=== PATIENT | male | born 1985 | race Caucasian/White ===

== ENCOUNTER 2017-05-26 16:32 | Emergency (ER) | payer OTHER ==
[~2017-05-26] VITALS: Ht 190.5 cm; Wt 89.8 kg
[~2017-05-26 16:32] MED LIST: DEPO-TESTO100 MG/1 M IM; DOCUSATE SODIU100 MG PO; LATUDA20 MG PO; NAPROSYN500 MG PO; PROTONIX40 MG PO; ZANTAC300 MG PO
[2017-05-26] MEDS ORDERED: ASPIRIN81 MG PO (16:50)
[2017-05-26] MEDS ORDERED: IMITREX25 MG (16:52)
[2017-05-26] MEDS ORDERED: OMEPRAZOLE20 MG (16:52)
[2017-05-26] MEDS ORDERED: OMEPRAZOLE20 MG PO (16:53)
--- OUTSIDE RECORDS SUMMARY | 2017-05-26 17:09 | XMS | Clinical Summary ---
Demographics + + + | Address | [address] [place] [address] | | | [place] [address] | + + + | Home Phone | | + + + | Preferred Language | Unknown | + + + | Marital Status | Single | + + + | Judaism Affiliation | None | + + + | Race | White | + + + | Ethnic Group | Not or | + + + Author + + + | Author | [facility] | + + + | Organization | [facility] | + + + | Address | Unknown | + + + | Phone | Unavailable | + + + Support + + +---------+ + | Name | Relationship | Address | Phone | + + +---------+ + | Ayush Sydney | ECON | Unknown | | + + +---------+ + Care Team Providers + +------+ + | Care Director Global Sales Name | Role | Phone | + +------+ + | Poppy Doctor | PP | Unavailable | + +------+ + Allergies + + + + + + | Active Allergy | Reactions | Severity | Noted | Comments | | | | | Date | | + + + + + + | Acetaminophen | Other (See Comments) | Low | 10/17/19 | "for my liver" per | | | | | 16 | pt | + + + + + + | Ibuprofen | Other (See Comments) | Low | 10/17/19 | "for my liver" per | | | | | 16 | pt | + + + + + + | Morphine | Other (See Comments) | Low | 10/17/19 | Pt states woke up | | | | | 16 | in a rage | + + + + + + | Trazodone | Needs Follow Up | Low | 10/17/19 | | | | | | 16 | | + + + + + + Current Medications + + +-------+---------+------+------+-------+ | Prescription | Sig. | Disp. | Refills | Star | End | Statu | | | | | | t | Date | s | | | | | | Date | | | + + +-------+---------+------+------+-------+ | testosterone | Inject 100 mg into | | | 04/0 | | Activ | | cypionate | the muscle every 14 | | | 04/05 | | e | | (DEPOTESTOSTERONE | days | | | 16 | | | | CYPIONATE) 200 mg/mL | | | | | | | | injection | | | | | | | + + +-------+---------+------+------+-------+ | hydrOXYzine | Take 100 mg by mouth | | | | | Activ | | (ATARAX) 50 mg | 3 times daily as | | | | | e | | tablet | needed for Itching | | | | | | | | or Anxiety | | | | | | + + +-------+---------+------+------+-------+ | ranitidine | Take 150 mg by mouth | | | | | Activ | | (ZANTAC) 150 mg | 2 times daily | | | | | e | | capsule | | | | | | | + + +-------+---------+------+------+-------+ | docusate sodium | Take 100 mg by mouth | | | | | Activ | | (COLACE) 100 mg | 2 times daily | | | | | e | | capsule | | | | | | | + + +-------+---------+------+------+-------+ | pantoprazole | Take 40 mg by mouth | | | | | Activ | | (PROTONIX) 40 mg EC | every morning | | | | | e | | tablet | (before breakfast) | | | | | | + + +-------+---------+------+------+-------+ | SUMAtriptan | Take 25 mg by mouth | | | | | Activ | | (IMITREX) 25 mg | once as needed for | | | | | e | | tablet | Migraine | | | | | | + + +-------+---------+------+------+-------+ | naproxen | Take 500 mg by mouth | | | | | Activ | | (NAPROSYN) 500 mg | 2 times daily (with | | | | | e | | tablet | meals) | | | | | | + + +-------+---------+------+------+-------+ | lurasidone | Take 80 mg by mouth | | | | | Activ | | (LATUDA) 80 mg | daily | | | | | e | | tablet | | | | | | | + + +-------+---------+------+------+-------+ Active Problems + + + | Problem | Noted Date | + + + | Nausea and vomiting | 10/17/2015 | + + + | Slow transit constipation | 10/17/2015 | + + + | History of gastrointestinal ulcer | 10/17/2015 | + + + + + | Overview: 2014 | | EGD [facility] [place] | + + Social History + +-------+ +--------+------+ | Tobacco Use | Types | Packs/Day | Years | Date | | | | | Used | | + +-------+ +--------+------+ | Former Smoker | | | | | + +-------+ +--------+------+ + +---+---+---+ | Smokeless Tobacco: | | | | | Former User | | | | + +---+---+---+ + + +---------+ + | Alcohol Use | Drinks/We | oz/Week | Comments | | | ek | | | + + +---------+ + | No | | | | + + +---------+ + + + + | Sex Assigned at | Date Recorded | | | | + + + | Not on file | | + + + Last Filed Vital Signs + + + + | Vital Sign | Reading | Time Taken | + + + + | Blood Pressure | 135/88 | 10/17/2015 2:37 PM PDT | + + + + | Pulse | 65 | 10/17/2015 2:37 PM PDT | + + + + | Temperature | 36.1 C (96.9 F) | 10/17/2015 2:37 PM PDT | + + + + | Respiratory Rate | 16 | 10/17/2015 2:37 PM PDT | + + + + | Oxygen Saturation | 95% | 10/17/2015 2:37 PM PDT | + + + + | Inhaled Oxygen | - | - | | Concentration | | | + + + + | Weight | 97.3 kg (214 lb 6.4 | 10/17/2015 12:07 AM PDT | | | oz) | | + + + + | Height | 185.4 cm (6' 1") | 10/17/2015 12:07 AM PDT | + + + + | Body Mass Index | 28.29 | 10/17/2015 12:07 AM PDT | + + + + Plan of Treatment + + + + + | Health Maintenance | Due Date | Last Done | Comments | + + + + + | HIV Screening | | | | | | 9 | | | + + + + + | Tetanus | | | | | | 3 | | | + + + + + | IMM Influenza (#1) | | | | | | 7 | | | + + + + + Results Not on filefrom Last 3 Months Insurance + +--------+ +-------+ + + | Payer | Benefi | Subscriber | Type | Phone | Address | | | t Plan | ID | | | | | | / | | | | | | | Group | | | | | + +--------+ +-------+ + + | [employer] | [employer] | [id number] | Other | [phone] [address] [address] | | [facility] | [place] | | [phone] | [place], [place] | | | [place] | | | | [phone] | | | | | | | | | | HEALTH | | | | | | | | | | | | | | PARTNE | | | | | | | RS | | | | | + +--------+ +-------+ + + + +--------+ +--------+ + + | Guarantor Name | Accoun | Relation to | Date | Phone | Billing Address | | | t Type | Patient | of | | | | | | | | | | + +--------+ +--------+ + + | HANS SCOTT | Person | Self [birth year] Home: | [address] | | | al/Fam | | [phone] | [phone] | [place] [address] | | | [place] | | | [phone] | | + +--------+ +--------+ + + Advance Directives Patient has advance directives. For more information, please contact:[employer] [place] [address]
--- OUTSIDE RECORDS SUMMARY | 2017-05-26 17:09 | XMS | Clinical Summary ---
Demographics + + + | Address | [address] [place] [address] | | | [place] [address] | + + + | Home Phone | | + + + | Preferred Language | Unknown | + + + | Marital Status | Single | + + + | Religion Affiliation | None | + + + [...] Team Providers + +------+ + | Care Licensed Mental Health Counselor Name | Role | Phone | + [...] | | EGD in [facility] [place] | + + Social History + +-------+ [...] + | [employer] | [employer] | [id number] | Other | [phone] | [address] [address] | | [facility] | [place] | | | [phone] | [place], [place] | | | [place] | | | | [phone] | | | | | | | [...] Self | [birth year] | Home: | [address] | | | al/Fam | | [phone] | [phone] | [place] [address] | | | [place] | | | [phone] | | + +--------+ +--------+ + + Advance Directives Patient has advance directives. For more information, please contact:[employer] [place] [address]
--- NOTE | 2017-05-27 07:11 | EKG ---
[facility] [address] [facility] [place], [place] [address] Signed Sinus bradycardia Otherwise normal ECG Confirmed by LISY SAUNDERS MD ([id number]) on 05/27/2017 7:11:10 AM Electronically Signed By: LISY SAUNDERS MD 05/27/17 0711 PATIENT NAME: DEDRICK SCOTT Electrocardiogram DATE OF : [birth year] PHYSICIAN: LISY SAUNDERS MD REPORT #: [id number] REPORT IS CONFIDENTIAL AND NOT TO BE RELEASED WITHOUT AUTHORIZATION
== END 2017-05-26 18:16 | disposition home or self-care (01) ==
LOC: ED 16:32
DX: R07.9 Chest pain, unspecified (principal); R06.02 Shortness of breath; Z86.2 Personal history of diseases of the blood and blood-forming organs and certain disorders involving the immune mechanism; Z87.891 Personal history of nicotine dependence; Z88.5 Allergy status to narcotic agent; Z88.6 Allergy status to analgesic agent; Z79.82 Long term (current) use of aspirin; Z79.899 Other long term (current) drug therapy
CPT/HCPCS: 71020; 80053; 83880; 84484; 85025; 85379; 93005; 93010; 99284